=== PATIENT | male | born 1950 | race Caucasian/White ===

== ENCOUNTER 2023-05-18 20:53 | Emergency (ER) | payer MEDICARE, BC ==
[2023-05-18] MEDS ORDERED: Mupirocin Oint 22 GM Tube TOP ONE (21:38)
== END 2023-05-18 21:45 | disposition home or self-care (01) ==
LOC: KA.ED 20:53
DX: S60.512A Abrasion of left hand, initial encounter (principal); Z91.048 Other nonmedicinal substance allergy status; W22.09XA Striking against other stationary object, initial encounter; Y99.0 Civilian activity done for income or pay
CPT/HCPCS: 99283; A9270-GY